=== PATIENT | male | born 1990 | race Caucasian/White ===

== ENCOUNTER 2021-07-03 14:20 | Emergency (ER) | payer OTHER, SELFPAY ==
[2021-07-03 14:37] VITALS: BP 121/71; PULSE 65; RESP 16; TEMP 37.2; O2SAT 98
--- NOTE | 2021-07-03 14:55 | ED.URI ---
HPI - URI/Sore Throat General Chief Complaint: Upper Respiratory Infection Stated Complaint: Sore Throat Time Seen by Provider: 07/03/21 14:47 Source: patient and RN notes reviewed Mode of arrival: ambulatory Limitations: no limitations History of Present Illness HPI Narrative: Patient presents today with a 2-day history of sore throat. Denies any additional symptoms. Currently rates his pain 4/10, which increases with swallowing. He has been using cough drops with mild relief. Denies any sick contacts. MD elicited complaint: sore throat Related Data Home Medications Medication Instructions Recorded Confirmed No Home Medications 07/03/21 07/03/21 Allergies Allergy/AdvReac Type Severity Reaction Status Date / Time No Known Allergies Allergy Verified 07/03/21 14:38 Review of Systems Review of Systems: CONSTITUTIONAL: Denies body aches, fever, chills, or sweats. EYES: Denies visual changes, redness, or discharge. ENT: Denies rhinorrhea, congestion, or otalgia.+ Sore throat CARDIOVASCULAR: Denies chest pain, palpitations, or edema. RESPIRATORY: Denies cough or dyspnea. GASTROINTESTINAL: Denies abdominal pain, nausea, vomiting, or diarrhea. GENITOURINARY: Denies dysuria or hematuria. SKIN: Denies rash, itching, or wounds. MUSCULOSKELETAL: Denies back pain, joint pain, or myalgia. NEUROLOGIC: Denies headache, numbness, tingling, or weakness. PSYCH: Denies depression or anxiety. PMFSH Comments At time of signature, I have reviewed and agree with nursing past medical, surgical, social and family history unless otherwise noted. Please see nursing chart for further information. There is no relevant family history pertinent to the presenting complaint Exam Narrative: GENERAL: Well-appearing, well-nourished, and in no acute distress. HEAD: Normocephalic, atraumatic. EYES: EOMI. No redness or drainage. Conjunctivae normal. ENT: Mucous membranes pink and moist. Nares clear. No rhinorrhea. TMs normal bilaterally. Throat normal. Uvula midline. NECK: Normal AROM. CHEST: No respiratory distress. EXTREMITIES: Normal range of motion. No edema. SKIN: Warm, dry, no rash. Capillary refill normal. Normal skin turgor. NEURO: No focal deficits. Alert and oriented x3. Gait steady. PSYCH: Normal affect. No signs of depression or anxiety. Course Course Level of Care: [facility] [place] Visit Vital Signs Vital signs: Vital Signs Temperature 98.9 F 07/03/21 14:37 Pulse Rate 65 07/03/21 14:37 Respiratory Rate 16 07/03/21 14:37 Blood Pressure 121/71 07/03/21 14:37 Pulse Oximetry 98 07/03/21 14:37 Temperature 98.9 F 07/03/21 14:37 Pulse Rate 65 07/03/21 14:37 Respiratory Rate 16 07/03/21 14:37 Blood Pressure 121/71 07/03/21 14:37 Pulse Oximetry 98 07/03/21 14:37 Reviewed. Pt has been instructed to follow up with his PCP regarding his elevated blood pressure today. MDM - URI/Sore Throat Differential Diagnosis Differential diagnosis: Likely upper respiratory infection, otitis media, pharyngitis and other (Strep throat) Lab Data Attestation: I reviewed the patient's lab results. Labs: Strep Screen Presumptive Negative *(Reference Range: Negative)* Critical Care Time Critical Care Time Critical Care Time: No Discharge Plan Discharge Clinical Impression: Upper respiratory infection Qualifiers: URI type: unspecified URI Qualified Code(s): J06.9 - Acute upper respiratory infection, unspecified Patient Disposition: Home, Self-Care Condition: Stable Instructions: Upper Respiratory Infection (DC) Additional Instructions: Your rapid strep swab was negative today at [facility]. You will be notified in a few days if the culture comes back positive for strep, and appropriate antibiotics will be called in for you at that time. Your symptoms are likely due to a viral illness, which is not treated with antibiotics. Charo
== END 2021-07-03 15:04 | disposition home or self-care (01) ==
PROVIDERS: Emergency Provider Nurse Practitioner
DX: J06.9 Acute upper respiratory infection, unspecified (principal)
CPT/HCPCS: 87081; 87880; 99203; G0463

== ENCOUNTER 2023-09-04 13:22 | Outpatient (CLI) | payer OTHER, SELFPAY ==
--- NOTE | ~2023-09-04 | US_ITS ---
EXAMINATION: US soft tissue abdomen DATE: 09/04/2023 13:43 INDICATION: Prior umbilical hernia repair with current discomfort TECHNIQUE: Multiple grayscale and Doppler ultrasound images of the periumbilical abdominal wall at th e region of concern were obtained. COMPARISON: None FINDINGS: There is recurrent small fat-containing umbilical hernia which measures 3.0 x 2.4 x 1.0 cm and extend s through a 7 x 6 mm os. There is minimal movement of fat into and out of the hernia with Valsalva. N o evident herniated bowel. IMPRESSION: 1. Small fat-containing umbilical hernia. Reviewed, dictated and finalized at location A.
--- NOTE | ~2023-09-04 | XR_ITS ---
EXAMINATION: XR finger 1st RT min 2V DATE: 09/04/2023 13:45 INDICATION: Right thumb pain TECHNIQUE: Dorsal palmar, lateral and oblique views of the right first digit were obtained COMPARISON: None FINDINGS: Alignment is normal. No fracture. Mild osteoarthritis at the right first metacarpophalangeal and inte rphalangeal joints. No erosions. Soft tissues are unremarkable. IMPRESSION: 1. 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 No acute os seous abnormality. Reviewed, dictated and finalized at location A. IMPRESSION: 1. Mild osteoarthritis at the right first metacarpophalangeal and interphalange al joints. No acute osseous abnormality.
== END 2023-09-04 13:23 ==
LOC: MICIMG 13:23
PROVIDERS: PCP Nurse Practitioner Family; Visit Provider Nurse Practitioner Family
DX: M19.041 Primary osteoarthritis, right hand (principal); K42.9 Umbilical hernia without obstruction or gangrene
CPT/HCPCS: 73140; 76705

== ENCOUNTER 2023-10-07 07:24 | Outpatient (CLI) | payer OTHER, SELFPAY ==
--- NOTE | ~2023-10-07 | CT_ITS ---
CT pelvis w con Ordering provider: Vikki Cabrera NP History: . R22.9 - Localized swelling, mass and lump, unspecified . Comparison: None. Technique: CT pelvis without oral and IV contrast. Radiation reduction technique utilized. Findings: BONES: No pelvic fracture or hip dislocation. Normal spine. Hip and sacroiliac joint spaces are well maintained. SUPERFICIAL SOFT TISSUES: Normal. PELVIC ORGANS: The bladder is underfilled with slightly thickened wall. VISUALIZED BOWEL AND MESENTERY: Normal. No free air or free fluid. No lymphadenopathy. RETROPERITONEUM: Mild atheromatous disease. IMPRESSION: No definite soft tissue abnormality seen. No definite bone abnormality noted. Visualized bowel loops are unremarkable. if Clinically still suspicious follow-up advised. Reviewed, dictated and finalized at location A. IMPRESSION: No definite soft tissue abnormality seen. No definite bone abnormality noted. V isualized bowel loops are unremarkable. if Clinically still suspicious follow-u p advised.
== END 2023-10-07 07:25 | disposition home or self-care (01) ==
PROVIDERS: PCP Nurse Practitioner Family; Visit Provider Nurse Practitioner Family
DX: R22.9 Localized swelling, mass and lump, unspecified (principal)
CPT/HCPCS: 72193; Q9967

== ENCOUNTER 2023-10-22 11:06 | Outpatient (CLI) | payer OTHER, SELFPAY ==
--- NOTE | ~2023-10-22 | CT_ITS ---
EXAMINATION: CT abdomen pelvis wo con DATE: 10/22/2023 11:18 INDICATION: Incisional hernia without obstruction or gangrene. TECHNIQUE: Computed tomography (CT) of the abdomen and pelvis was performed without intravenous contr ast. Automated exposure control and iterative reconstruction technique were employed. The dose-length product was 467.44 mGy-cm. COMPARISON: Pelvis CT 10/07/2023 FINDINGS: The visualized portions of the lung bases are clear without pneumonia or pleural effusion. The heart size is normal. No pericardial effusion. The liver, gallbladder, spleen, pancreas, adrenal glands, and kidneys are normal. There are no dilated loops of bowel. The appendix is normal. There ar e no pathologically enlarged lymph nodes. There is no free intraperitoneal fluid. There is a supraumb ilical ventral hernia containing fat. There is mild lumbar spondylosis. IMPRESSION: 1. Supraumbilical ventral hernia containing fat. Reviewed, dictated and finalized at location A.
== END 2023-10-22 11:07 ==
LOC: MICIMG 11:07
PROVIDERS: PCP Nurse Practitioner Family; Visit Provider Surgery
DX: K43.2 Incisional hernia without obstruction or gangrene (principal)
CPT/HCPCS: 74176

== ENCOUNTER 2023-12-08 10:24 | Outpatient (CLI) | payer OTHER, SELFPAY | END 2023-12-08 10:25 | disposition home or self-care (01) | PROVIDERS: PCP Nurse Practitioner Family; Visit Provider Surgery | DX: Z01.812 Encounter for preprocedural laboratory examination (principal); K43.2 Incisional hernia without obstruction or gangrene | CPT/HCPCS: 36415; 86850; 86900; 86901 ==

== ENCOUNTER 2023-12-11 01:25 | Day surgery (SDC) | payer OTHER, SELFPAY ==
[2023-12-04 14:48] VITALS: BMI 26.6
--- NOTE | 2023-12-04 15:14 | PC.NURSE ---
Report to the Outpatient Waiting Room, entrance under the green pavilion located off [facility], at 1000 on 12-11-23. Planned Procedure Time: 1200. Time changes happen often and if your time is changed the preop area will call you the afternoon before. - You and your visitor will be asked to self-screen and do not enter if you have any COVID symptoms. - A mask is optional within the hospital at this time. Patients may have clear liquids (water, carbonated beverages, clear teas, apple juice) until 3 hours prior to surgery with a maximum of 20 ounces. 0900 - No food from midnight until time of surgery - Infants may have breast milk until 4 hours before surgery, formula 6 hours prior to surgery. - Children will be allowed to drink immediately following surgery. If applicable, please bring a bottle or sippy cup to assist with drinking. Juice, water, soda, and popsicles are readily available. For infants on formula, please bring formula the day of surgery. Pacifiers are allowed. Take the following medications with a SIP of water the morning of surgery: None DO NOT STOP ANY OF YOUR OTHER PRESCRIPTION MEDICATIONS PRIOR TO SURGERY ?EXCEPT THE FOLLOWING Medications to discontinue per physician: Vitamins and supplements Date to take last dose: 12-08-23 Please no make-up, nail [place] citizen, hairspray, perfume, deodorant, or body powder the day of surgery. No jewelry (including any body piercings) or valuables the day of surgery, leave them at home. Please take a shower or bath the night before, or the morning of, surgery with an antibacterial soap. Wear comfortable, loose fitting clothing. Children are encouraged to wear pajamas. - Jewelry must be removed prior to entering the operating room. Rings and piercings that are not removed may be cut off. - The hospital will not accept responsibility for valuables. - Please leave all valuables, including medications, at home the day of surgery. If you are going home after surgery, a licensed security patrol driver must drive you home. - NO public transportation without another adult if you receive anesthesia. - We recommend that an adult stay with you for 24 hours following discharge. - We also recommend that you do not drive, make important decision, drink alcoholic beverages, or take any drugs that were not prescribed by your health care provider for at least 24 hours after your discharge time. For Pediatric surgeries, we recommend two adults accompany the child home. Follow any additional instructions given to you from your surgeon. If you or anyone in your household have experienced Covid symptoms in the past week, please notify your surgeon or the nurse liaison at the phone number below for possible testing. Telephone instructions given to Jacoby Gan and asked if any additional questions and then verbalized understanding. Patient advised to call surgeon office or pre surgery nurse liaison [phone] if any additional questions.
[2023-12-11] VITALS (11 sets, daily range): BP systolic 122–140; BP diastolic 54–89; PULSE 57–86; RESP 12–19; TEMP 36.1–36.2; O2SAT 95–100; BMI 27.4
[2023-12-11] MEDS: LACTATED RINGERS 1,000 ML 30 ML IV CONT ×2 (09:00→15:24)
[2023-12-11] MEDS: ACETAMINOPHEN 500 MG TABLET 1000 MG PO (09:27)
[2023-12-11] MEDS: KETOROLAC 15 MG/ML VIAL (*BKC) IV PUSH ×2 (09:27→14:48)
--- NOTE | 2023-12-11 10:30 | SUR.PREOP ---
1030- Notified patient and significant other procedure start time delayed. Patient denying needs at this time.
--- NOTE | 2023-12-11 10:41 | PM.IMHP ---
H&P: HPI History of Present Illness Date/Time: 12/11/23 10:41 Chief Complaint: Supraumbilcal ventral hernia Narrative: Pt with supraumbilical ventral hernia. Defect on CT less than 2 cm. He also has an associated epigastric diastasis. Hernia is reducible. His prior umbilcal hernia was done open without mesh. Review of Systems Review of Systems: The remainder of the review of systems to include constitutional, HEENT, cardiovascular, respiratory, GI, , integumentary, musculoskeletal, endocrine, immunologic, hematologic, psychiatric, and neurologic are all negative except for which is mentioned above in the HPI. [facility] Past Medical History Medical History Bladder wall thickening Fatigue Low back pain Pain of right thumb Perineal lump Snoring Tinnitus Surgical History Surgical History Hx of umbilical hernia repair Social History Social History Years smoked: 1 Smoking status: Former smoker Tobacco type: e-cigarettes/vaping Second hand tobacco smoke exposure: No Smoking end date: 05/29/23 Additional smoking assessment comments: 1 year vaped Alcohol intake: current Alcohol use details: socially Substance use: never Substance use type: does not use Do You Feel Safe in your Home?: Yes Lack of Transportation: No Lack of Food: Never True Current Housing: I Have Housing Concerned About Future Housing: No Difficulty Paying Gas/Electric Bills: No Difficulty Paying for Meds: No Currently Unemployed: No Education: Associate Degree Difficulty w/ Childcare or Family Care: No Living arrangements: with family Spiritual care concerns: No Meds Home Medications and Allergies Home Medications Medication Instructions Recorded Confirmed Type multivitamin 1 tablet PO DAILY 08/27/23 12/11/23 History Allergies Allergy/AdvReac Type Severity Reaction Status Date / Time No Known Allergies Allergy Verified 12/11/23 09:15 Vital Signs Vital Signs - 24 hr 12/11/23 08:26 Temperature 36.2 C L Pulse Rate 64 Respiratory Rate 18 Blood Pressure 124/81 Pulse Oximetry 100 Oxygen Delivery Room Air Exam Const: General: comfortable and no acute distress HENMT: Ears: TM's normal bilaterally Face/Nose/Sinus: Normal nares present Mouth: Yes moist mucous membranes Eyes: General: appearance normal, both eyes and all related structures Sclera: sclerae normal Pupils: Equal, round and reactive pupils present EOM: EOMs intact bilaterally Neck: Neck: supple and no JVD Resp: Effort & Inspection: normal respiratory effort Auscultation: clear to auscultation bilaterally Cardio: Rate: regular rate Rhythm: regular rhythm GI: Other: Soft, supraumbilcal recurrent ventral hernia reducible, minimal tenderness. No abd wall rash. Skin: General skin exam: normal color and no rashes or lesions noted Neuro: General: gait normal Speech: normal speech Motor exam (neuro): 5/5 motor strength present throughout Sensory Exam: normal sensation Extrem: General: normal to inspection Psych: Mental Status: mental status grossly normal Affect: normal affect Assessment and Plan Assessment and plan (1) Recurrent ventral hernia: Code(s): K43.2 - Incisional hernia without obstruction or gangrene Status: Acute Assessment and Plan: I have reviewed the imagine results along with operative notes from James Hall MD at [facility]. I have recommended a robotic assisted laparoscopic ETEP recurrent ventral hernia repair with mesh to be done under general anesthesia as an outpatient. The procedure was discussed in detail including the use of mesh, general description, and usual course of recovery. Risks of recurrence, infection, postop bleeding, prolonged postop pain, possible need to retur
--- NOTE | 2023-12-11 10:45 | WPDHPUPDATE1 ---
History and Physical Update Update Date/Time: 12/11/23 10:45 History and Physical has been reviewed, including an updated exam of the patient. There are NO changes in the patient's condition. Risks, benefits, and alternatives have been discussed and questions answered. Patient agrees to proceed with procedure.
--- NOTE | 2023-12-11 11:35 | P.PNAN_ITS ---
Anes - Initial Pre Proc Eval Procedure: Operation Date: 12/11/23 10:30 Proposed Procedures p Robotic Assisted Laparoscopic Extended Totally Extraperitoneal Repair and Recurrent Ventral Hernia Repair with Mesh - Ron Ngo MD Date/Time: 12/11/23 11:35 Surgeon: Ron Ngo MD Pre Op Diagnosis: Reducible Recurrent Incisional Hernia (3.5cm) Patient Data Age: 33 Gender: M Height: 1.7 m Weight: 79.5 kg Last Vital Signs Temp 97.2 F L 12/11/23 08:26 Pulse 64 12/11/23 08:26 Resp 18 12/11/23 08:26 BP 124/81 12/11/23 08:26 Pulse Ox 100 12/11/23 08:26 O2 Del Method Room Air 12/11/23 08:26 Allergies Allergy/AdvReac Type Severity Reaction Status Date / Time No Known Allergies Allergy Verified 12/11/23 09:15 Home Medications Medication Instructions Recorded Confirmed Type multivitamin 1 tablet PO DAILY 08/27/23 12/11/23 History Patient hx anesthesia problems: none Family hx anesthesia problems: none Results Review: All pre-operative results and documents have been reviewed as part of the pre- operative evaluation. [facility] Past Medical History Medical History Bladder wall thickening Fatigue Low back pain Pain of right thumb Perineal lump Snoring Tinnitus Surgical History Surgical History Hx of umbilical hernia repair Social History Social History Years smoked: 1 Smoking status: Former smoker Tobacco type: e-cigarettes/vaping Second hand tobacco smoke exposure: No Smoking end date: 05/29/23 Additional smoking assessment comments: 1 year vaped Alcohol intake: current Alcohol use details: socially Substance use: never Substance use type: does not use Do You Feel Safe in your Home?: Yes Lack of Transportation: No Lack of Food: Never True Current Housing: I Have Housing Concerned About Future Housing: No Difficulty Paying Gas/Electric Bills: No Difficulty Paying for Meds: No Currently Unemployed: No Education: Associate Degree Difficulty w/ Childcare or Family Care: No Living arrangements: with family Spiritual care concerns: No Anes - Eval Final PreProcedure Day of Procedure 12/11/23 11:35 Patient weight: normal Heart: regular rate and rhythm Lungs: clear to auscultation Airway: Mallampati scale class II Neurological: alert and oriented Last oral intake: >/= 8 hours ASA classification: II Emergent: no Anesthetic plan: proceed Anesthesia type and monitoring: general ETT and standard monitoring Results Review: All pre-operative results and documents have been reviewed as part of the pre- operative evaluation. Informed Consent: The patient's anesthetic plan and its attendant risks and benefits were dis cussed with the patient/family/POA. Questions were solicited and answers provided to the satisfaction of the patient/family/POA.
[2023-12-11] MEDS: ceFAZolin 2 GM/D5W 50 ML 2 GM/50 ML BAG IVPB (11:53)
[2023-12-11] MEDS: BUPivacaine HCL 0.5% 10 ML AMP 30 ML INFILTRATE (12:37)
[2023-12-11] MEDS: LIDO 1%/EPINEPHRINE 1:100,000 50 ML VIAL 30 ML INFILTRATE (12:37)
--- NOTE | 2023-12-11 15:29 | SUR.PHASEI ---
Dr. Ngo aware of enlarged scrotum.
[2023-12-11] MEDS: fentaNYL CITRATE INJ (*CRX) 100 MCG/2 ML VIAL 25 MCG IV PUSH ×2 (16:12→16:14)
[2023-12-11] MEDS: oxyCODONE HCL (*CRX) 5 MG TAB IR PO (16:52)
--- NOTE | 2023-12-11 17:54 | W.PM.PROC2 ---
Procedure Note - Detailed Date of Procedure 12/11/23 Pre-op Diagnosis Reducible Recurrent Incisional Hernia (6 x 4 cm) Post-op Diagnosis Same Procedure Performed Robotic assisted laparoscopic recurrent periumbilical incisional ventral hernia repair (eTEP) with Synecor mesh. Surgeon Ron Ngo MD [employer] [place] Anesthesia General Indications Patient is a 33-year-old male who had a prior open umbilical hernia repair without mesh several years ago. More recently he has noted increasing bulging in the periumbilical region and in the lower epigastric region of the abdominal wall. CT scan abdomen pelvis was done showing a recurrent incisional hernia in the periumbilical region the defect measuring approximately 4cm in greatest width. Contents of the hernia was fatty tissue and no bowel was involved. Findings The patient had a reducible incisional hernia with preperitoneal in omentum tissue within the hernia sac. The defect measuring 6cm in length by 4cm in greatest width. It was situated in the periumbilical region. Patient also had a epigastric abdominal wall diastasis with approximately 3cm separation between the edges of the good muscle. The Synecor mesh was placed in the retrorectus space via a robotic assisted laparoscopic the eTEP approach. The mesh chosen for the repair was 25cm in length by 20cm in width and was trimmed to size to fit in the dissected space. Description of Procedure After informed consent was obtained, the patient was brought to the operating room where he was placed in the supine position and then general endotracheal anesthesia was administered. A Perez catheter was placed decompress the bladder. The abdomen was then prepped and draped in usual sterile fashion. A time-out was then performed correctly identifying the patient as well as procedure to be performed. He was given Ancef for perioperative IV antibiotics. I then started by placing a 5mm Optiview port into the retrorectus space in the left upper quadrant. Once in the space I used the 0degree laparoscoped to bluntly dissect in this retrorectus space until I could place an 8mm robotic trocar port in the left lateral abdominal wall anterior to the left linea semilunaris. I then used the laparoscopic hook cautery to further divide loose areolar tissue in the recto rectus space the posterior rectus fascia for muscle fibers. I then placed 2 more 8 left lateral abdominal wall trocar ports under direct visualization. We then switched out the 5mm upper quadrant trocar port to a 12mm bedside assist trocar port. The [employer] robot was then docked to the patient's bedside and then the robotic arms were attached the robotic ports. Robotic instruments were then advanced into the left retrorectus space under direct visualization. There were robotic dissection I continued to further develop the retrorectus space dividing tissue inferior down almost to the groin region and medial to the midline fascia. In the epigastric region of the abdomen I incised the posterior rectus sheath about 1cm lateral to the midline and divided the posterior rectus sheath staying in the preperitoneal plane along the whole length of the left rectus muscle. Superiorly under the epigastric fat pad I did my cross over to the right side of the abdomen I then sized the posterior rectus sheath on the right rectus muscle entering the right retrorectus space. I divided the right retrorectus fascia to mesh length of the division of the left side. The omentum and preperitoneal fat within the hernia defect was then divided out of the hernia sac. I then measured the defect was 6cm in length by 4cm in width. I continue my dissection of the posterior rectus space bilaterally until I had at least 5cm of distal dissection below the hernia defect. Measured my dissection did not divide any significant neurovascular bundles to the rectus muscle bilaterally. I then looked at
== END 2023-12-11 17:30 | disposition home or self-care (01) ==
PROVIDERS: PCP Nurse Practitioner Family; Visit Provider Surgery
PROC: (CPT 49615; principal; 2023-12-11 10:30)
DX: K43.2 Incisional hernia without obstruction or gangrene (principal); Z98.890 Other specified postprocedural states; Z87.891 Personal history of nicotine dependence
CPT/HCPCS: 49615; S2900; A9270; J0690; J1100; J1170; J1596; J1885; J2250; J2405; J2704; J3010; J7120

== ENCOUNTER 2023-12-13 10:42 | Emergency (ER) | payer OTHER, SELFPAY ==
--- NOTE | ~2023-12-13 | XR_ITS ---
XR chest 2V DATE: 12/13/2023 14:50 INDICATION: Fever. Recent hernia surgery. TECHNIQUE: AP and lateral views COMPARISON: 10/22/2023 CT abdomen pelvis FINDINGS: There is a small amount of free air beneath the right leaf of the diaphragm; recommend clin ical correlation; if no recent abdominal surgery, ruptured hollow intra-abdominal viscus must be cons idered. There is mild to moderate atelectasis at the lung bases. The lungs otherwise appear clear. Normal heart size. No hilar or mediastinal enlargement. No pulmonary vascular congestion or pleural e ffusion. There is subcutaneous emphysema of the cervical soft tissues bilaterally no pneumothorax is evident. No obvious pneumomediastinum. IMPRESSION: Mild intraperitoneal free air; recommend clinical correlation to exclude possible rupture d hollow abdominal viscus if no recent abdominal surgery Mild bilateral cervical subcutaneous emphysema Mild to moderate atelectasis at the lung bases Reviewed, dictated and finalized at [facility]. IMPRESSION: Mild intraperitoneal free air; recommend clinical correlation to ex clude possible ruptured hollow abdominal viscus if no recent abdominal surgery Mild bilateral cervical subcutaneous emphysema Mild to moderate atelectasis at the lung bases
--- NOTE | ~2023-12-13 | CT_ITS ---
EXAMINATION: CT chest abdomen pelvis w con DATE: 12/13/2023 16:33 INDICATION: Fever, pain. Recent umbilical hernia surgery. Intraperitoneal free air and subcutaneous e mphysema of the neck on 12/13/2023 CT chest. TECHNIQUE: Computed tomography (CT) of the chest, abdomen, and pelvis was performed with 100 CC Omnip [employer]que 350 intravenous contrast. Automated exposure control and iterative reconstruction technique were employed. Exam dose: 610.68 mGy-cm total exam DLP. COMPARISON: None FINDINGS: CHEST CT: There is bilateral cervical subcutaneous emphysema, mild anterior mid chest and upper bilateral abdom inal wall subcutaneous emphysema. There is pneumomediastinum and slight bilateral pneumothorax. There is prominent discoid atelectasis in both lower lobes and lingula Heart size is within normal limits. No thoracic aortic aneurysm or dissection. No hilar or mediastina l mass lesion or lymphadenopathy. No pericardial or pleural effusion. ABDOMEN/PELVIS CT: There is mild intraperitoneal free air. Is air within the scrotal sac bilaterally, subcutaneous emphysema in the inguinal areas bilaterally a long the bilateral anterior and right lateral abdominal and bilateral anterior pelvic campos The liver, gallbladder, spleen, pancreas, and adrenal glands and kidneys are unremarkable except for an approximately 6.7 mm right renal cyst. No urinary tract calculus or hydroureteronephrosis is evide nt. There is moderate diffuse thickening of the urinary bladder wall which may be due to underdistention. Cystitis is not excluded. No bowel obstruction, bowel wall thickening, bowel pneumatosis is evident. Normal caliber of the abdominal aorta. No intraperitoneal or retroperitoneal or pelvic mass lesion or adenopathy or ascites is detected. Included skeletal structures are unremarkable. IMPRESSION: Bilateral cervical, thoracic, abdominal and pelvic and scrotal subcutaneous emphysema Pneumomediastinum and slight bilateral pneumothoraces Mild intraperitoneal free air Reviewed, dictated and finalized at [facility]. Reviewed, dictated and finalized at [facility]. IMPRESSION: Bilateral cervical, thoracic, abdominal and pelvic and scrotal sub cutaneous emphysema Pneumomediastinum and slight bilateral pneumothoraces Mild intraperitoneal free air
[2023-12-13 10:44] VITALS: BP 126/73; PULSE 90; RESP 18; TEMP 36.6; O2SAT 96
[2023-12-13 14:09] VITALS: BP 122/71; PULSE 61; RESP 17; TEMP 37.1; O2SAT 94
[2023-12-13 14:10] VITALS: BP 122/71; PULSE 61; RESP 12; TEMP 37.1; O2SAT 94
[2023-12-13 14:19] LABS: Basophils Percent Auto 0.1 % (0.2-1.2); Eosinophils Absolute Auto 0.1 K/mm3 (0-0.3); Eosinophils Percent Auto 0.9 % (0-4.4); Hematocrit 43.5 % (42.0-52.0); Hemoglobin 14.4 g/dL (14.0-18.0); Immature Granulocyte Absolute 0.01 K/mm3 (0.00-0.031); Immature Granulocyte Percent A 0.1 % (0-0.5); Lymphocytes Absolute Auto 1.36 K/mm3 (0.9-3.2); Lymphocytes Percent Auto 18.1 % (18.3-44.2); Mean Corpuscular HGB Conc 33.1 g/dl (32-36); Mean Corpuscular Hemoglobin 28.8 pg (26-34); Mean Platelet Volume 10.4 fl (7.4-10.4); Monocytes Absolute Auto 0.7 K/mm3 (0.1-0.6); Monocytes Percent Auto 8.8 % (2.6-8.5); Neutrophils Absolute Auto 5.4 K/mm3 (1.3-6.7); Platelet Count Result 184 k/mm3 (150-375); Red Cell Distribution Width 12.9 % (11.5-14.5); White Blood Count 7.5 K/mm3 (4.5-10.0)
--- NOTE | 2023-12-13 14:24 | ED.FEVER ---
HPI - Fever General Chief Complaint: Fever Stated Complaint: fever post op Time Seen by Provider: 12/13/23 14:05 Source: patient Mode of arrival: ambulatory Limitations: no limitations History of Present Illness HPI Narrative: A 33-year-old male that presents to the emergency department for subjective fever. Reports he felt like he was burning up this morning. He did not take his temperature. Reports associated nausea. He recently had a hernia surgery which concerned him and prompted him to be seen. He also reports some upper chest and neck discomfort. Denies cough, congestion, sore throat, vomiting, diarrhea, or dysuria. Related Data Home Medications Medication Instructions Recorded Confirmed multivitamin 1 tablet PO DAILY 08/27/23 12/11/23 Allergies Allergy/AdvReac Type Severity Reaction Status Date / Time No Known Allergies Allergy Verified 12/11/23 09:15 Review of Systems Review of Systems: CONSTITUTIONAL: Denies fever ENT: Denies rhinorrhea, congestion, sore throat RESPIRATORY: Denies cough GASTROINTESTINAL: Reports abdominal pain, nausea. Denies vomiting, or diarrhea. GENITOURINARY: Denies dysuria or hematuria. All systems reviewed & are unremarkable except as noted in HPI and below PMFSH Past Medical History Medical History Bladder wall thickening Fatigue Low back pain Pain of right thumb Perineal lump Snoring Tinnitus Surgical History Surgical History Hx of umbilical hernia repair Social History Social History Years smoked: 1 Smoking status: Former smoker Tobacco type: e-cigarettes/vaping Second hand tobacco smoke exposure: No Smoking end date: 05/29/23 Additional smoking assessment comments: 1 year vaped Alcohol intake: current Alcohol use details: socially Substance use: never Substance use type: does not use Do You Feel Safe in your Home?: Yes Lack of Transportation: No Lack of Food: Never True Current Housing: I Have Housing Concerned About Future Housing: No Difficulty Paying Gas/Electric Bills: No Difficulty Paying for Meds: No Currently Unemployed: No Education: Associate Degree Difficulty w/ Childcare or Family Care: No Living arrangements: with family Spiritual care concerns: No Exam Narrative: GENERAL: Well-appearing, well-nourished, and in no acute distress. HEAD: Normocephalic, atraumatic. EYES: EOMI. ENT: Nares clear, no rhinorrhea or epistaxis. Mucous membranes moist. Oropharynx without tonsillar hypertrophy exudate or other lesions. Bilateral TMs pearly fitzpatrick non-bulging NECK: Supple. No adenopathy or masses. CHEST: Clear to auscultation. No respiratory distress. No wheezes rales or rhonchi HEART: Regular rate and rhythm. No murmur heard. Normal peripheral pulses. ABDOMEN: Soft, nondistended, normal active bowel sounds. Tender to palpation throughout the abdomen, without guarding. Several small 2.5cm linear surgical incision sites that are well healed without erythema, or abnormal drainage EXTREMITIES: Normal range of motion. No edema. SKIN: Warm, dry, no rash. NEURO: No focal deficits. Alert and oriented x3. PSYCH: Normal mood and affect Course Consultations Consultation #1: Spoke with Dr. Espinosa about patient and workup. Reports findings are likely normal post-op. As long as his pain is under control he can be discharged with outpatient follow up. Encourage patient to use incentive spirometer and get up and moving Date: 12/13/23 Vital Signs Vital signs: Vital Signs Temperature 97.9 F 12/13/23 10:44 Pulse Rate 90 12/13/23 10:44 Respiratory Rate 18 12/13/23 10:44 Blood Pressure 126/73 12/13/23 10:44 Pulse Oximetry 96 12/13/23 10:44 Oxygen Delivery Room Air 12/13/23 10:44 Temperature 98.9 F 12/13/23 17:46 Pulse Rate 69
[2023-12-13 14:28] LABS: Alanine Aminotransferase 20 U/L (6-50); Albumin Level 4.2 g/dL (3.5-5.1); Alkaline Phosphatase 62 U/L (38-126); Anion Gap 7 mmol/L (4-12); Aspartate Amino Transferase 43 U/L (17-59); Blood Urea Nitrogen 14 mg/dL (9-20); Calcium 9.3 mg/dL (8.4-10.2); Carbon Dioxide 30 mmol/L (22-30); Chloride 99 mmol/L (98-107); Estimated CRCL calculation 97 ml/min; Estimated Glomerular Filt Rate > 60; Glucose 101 mg/dL (65-110); Lipase 47 U/L (23-300); Potassium 3.9 mmol/L (3.4-5.0); Sodium 136 mmol/L (137-145)
[2023-12-13 14:53] LABS: Add Urine Microscopic? NO; Appearance Urine Clear (Clear); Bilirubin Urine Negative (Negative); Blood Urine Negative (Negative); Color Urine Yellow (Yellow); Glucose Urine UA Negative (Negative); Ketones Urine Negative (Negative); Leukocyte Esterase Ur Negative LEU/UL (Negative); Nitrate Urine Negative (Negative); Protein Urine Negative (Negative); pH Urine 7.5 (5.0-9.0)
[2023-12-13] MEDS: SODIUM CHLORIDE 0.9% IV 1,000 ML 999 ML IV CONT (14:54)
[2023-12-13 14:55] VITALS: BP 123/84; PULSE 59; RESP 12; O2SAT 98
[2023-12-13 14:55] LABS: Influenza A QL RT-PCR Negative (Negative); Influenza B QL RT-PCR Negative (Negative); RSV RNA, RT-PCR Negative (Negative); SARS-CoV-2 RNA PCR Negative (Negative)
[2023-12-13 16:14] VITALS: BP 127/86; PULSE 60; RESP 15; TEMP 37; O2SAT 95
[2023-12-13 17:46] VITALS: BP 130/82; PULSE 69; RESP 14; TEMP 37.2; O2SAT 98
[2023-12-13 18:04] LABS: Troponin I < 0.012 ng/mL (0.000-0.034)
== END 2023-12-13 19:16 | disposition home or self-care (01) ==
PROVIDERS: Emergency Provider Physician Assistant; PCP Nurse Practitioner Family
DX: T81.82XA Emphysema (subcutaneous) resulting from a procedure, initial encounter (principal); Z20.822 Contact with and (suspected) exposure to COVID-19; Z87.891 Personal history of nicotine dependence
CPT/HCPCS: 36415; 71046; 71260; 74177; 80053; 81003; 83690; 84484; 85025; 87637; 96360; 99284; J7030; Q9967

== ENCOUNTER 2023-12-24 09:22 | Outpatient (CLI) | payer OTHER, SELFPAY ==
--- NOTE | 2024-01-20 10:03 | WPDHOMESLEEP ---
Sleep Study - Home Unattended Date of Study: 12/24/23 Ordering Provider: Jim Hensley APRN Interpreting Provider: Sophie Martin DO Home Sleep Study Type: Watch PAT Height: 1.7 m Weight: 78.018 kg Body Mass Index: 26.9 Neck Circumference (inches): 14.5 [place]: 12 Reason for Sleep Study Daytime hypersomnia Sleep History The patient is a 33-year-old male that had a sleep study ordered by the pulmonary group for evaluation of sleep apnea. The patient admits to having on refreshing sleep and waking up tired in the morning. He does have the urge to fall asleep during the day. He does admit he had drowsiness while driving. He does snore loudly and he does stop breathing while asleep. He admits to choking and/or gasping during the night. He denies having trouble breathing on his back. He denies having morning headache. He admits to having a dry mouth or throat in the morning. He denies nocturnal heartburn. He denies nocturia. He denies having trouble falling asleep. He does have difficulty remaining asleep. He denies having difficulty returning to sleep if he awakens during the night. He does admit to waking up early unintentionally. He denies taking any hypnotics her sedatives to fall asleep. He denies having anxiety about sleep. He does clench or grind his teeth. He denies having kicking or jerking legs during the night. He typically goes to bed at 11:30 p.m. on work days. It takes him 15 minutes to fall asleep. He typically gets 5 hours of sleep per night. He does not take any planned naps. He consumes 1-2 cups of caffeinated beverage daily. He denies smoking cigarettes. He denies consuming alcohol on a weekly basis. He exercises 3-4 nights per week. He denies having a rotating shift schedule at work. [facility] Past Medical History Medical History Bladder wall thickening Fatigue Low back pain Pain of right thumb Perineal lump Snoring Tinnitus Surgical History Surgical History Hx of umbilical hernia repair Hx of umbilical hernia repair robotic assist lap recurrent periumbilical incisional ventral hernia repair with mesh Ron Ngo MD 12/11/23 Social History Social History Years smoked: 1 Smoking status: Former smoker Tobacco type: e-cigarettes/vaping Second hand tobacco smoke exposure: No Smoking end date: 05/29/23 Additional smoking assessment comments: 1 year vaped Alcohol intake: current Alcohol use details: socially Substance use: never Substance use type: does not use Do You Feel Safe in your Home?: Yes Lack of Transportation: No Lack of Food: Never True Current Housing: I Have Housing Concerned About Future Housing: No Difficulty Paying Gas/Electric Bills: No Difficulty Paying for Meds: No Currently Unemployed: No Education: Associate Degree Difficulty w/ Childcare or Family Care: No Living arrangements: with family Spiritual care concerns: No Medications Home Medications Medication Instructions Recorded Confirmed Type multivitamin 1 tablet PO DAILY 08/27/23 12/25/23 History Sleep Procedure The sleep study was completed using [employer] a technically adequate device with seven channels: peripheral arterial tone, actigraphy, body position, snore, respiratory movement, pulse oximetry, sleep staging, and heart rate. Prior to using the device, the patient received verbal and written instructions for its application and was provided with the help desk phone number for additional telephonic instruction with 24-hour availability of qualified personnel to answer questions. The study was scored using CMS guidelines. Sleep Architecture The total recording time is 7 hrs, 17 min. The total sleep time is 6 hrs, 37 min. Sleep latency is 6 minutes. REM latency is 67 minutes. The pat
[2024-01-20 10:04] VITALS: BMI 26.9
== END 2024-01-06 12:49 | disposition home or self-care (01) ==
LOC: ANHCSM 09:25
PROVIDERS: PCP Nurse Practitioner Family; Visit Provider Nurse Practitioner Family
DX: G47.30 Sleep apnea, unspecified (principal); G47.10 Hypersomnia, unspecified; G47.9 Sleep disorder, unspecified
CPT/HCPCS: 95800